=== PATIENT | male | born 1930 | race Caucasian/White ===

== ENCOUNTER → 2016-08-02 | Outpatient (CLI) | payer MEDICARE, BC ==
[~2016-08-02] MED LIST: ASPI81TA45 PO; BACT800T5 PO; CARV12.52 OR; CODCAP PO; DIGO0.12 PO; ESCI20TA PO; PLAV75TA OR; SIMV20TA OR; ZOFR4TAB3 SL; [UNRECOGNIZED DRUG - CODE] PO
[2016-08-02 13:21] LABS: HEMATOCRIT 40.8 % (39.0-51.0); MEAN CELL VOLUME 93.6 FL (80.0-100.0); MEAN CORPUSCULAR HGB CONC 33.1 % (32.0-36.0); PLATELET COUNT 209 TH/MM3 (150-450); RED BLOOD COUNT 4.35 MIL/MM3 (4.50-5.90); RED CELL DISTRIBUTION WIDTH 13.8 % (11.6-17.2); REVIEW FLAG FINAL; WHITE BLOOD COUNT 5.8 TH/MM3 (4.0-11.0)
[2016-08-02 13:56] LABS: ALKALINE PHOSPHATASE 74 U/L (45-117); ALT (GPT) 32 U/L (12-78); ANION GAP 7 MEQ/L (5-15); AST (GOT) 20 U/L (15-37); BICARBONATE 26.7 MEQ/L (21.0-32.0); BLOOD UREA NITROGEN 17 MG/DL (7-18); CHLORIDE 107 MEQ/L (98-107); GLOMERULAR FILTRATION RATE 39 ML/MIN (>89); GLUCOSE,FASTING 110 MG/DL (74-99); HDL CHOLESTEROL 27.7 MG/DL (40.0-60.0); LDL CHOLESTEROL 27 MG/DL (0-99); LDL CHOLESTEROL DIRECT 58 MG/DL (0-99); POTASSIUM 4.3 MEQ/L (3.5-5.1); SODIUM (NA) 141 MEQ/L (136-145); TOTAL BILIRUBIN ADULT 0.6 MG/DL (0.2-1.0)
== END ==
LOC: PLAB 07:46
PROVIDERS: ATTEND Internal Medicine
DX: I10 Essential (primary) hypertension (principal); E78.5 Hyperlipidemia, unspecified
CPT/HCPCS: 36415; 80053; 80061; 83721; 85027

== ENCOUNTER → 2016-08-30 | Outpatient (CLI) | payer MEDICARE, BC | LOC: PLAB 06:59 | DX: M32.10 Systemic lupus erythematosus, organ or system involvement unspecified (principal) | CPT/HCPCS: 36415; 86038; 86235 ==

== ENCOUNTER → 2016-09-06 | Outpatient (CLI) | payer MEDICARE, BC ==
[2016-09-06 12:09] LABS: AUTOMATED NEUTROPHIL # 4.3 TH/MM3 (1.8-7.7); BASOPHIL # 0.1 TH/MM3 (0-0.2); BASOPHIL % 1.6 % (0.0-2.0); EOSINOPHIL # 0.2 TH/MM3 (0-0.4); EOSINOPHIL % 2.6 % (0.0-4.0); HEMATOCRIT 39.6 % (39.0-51.0); HEMO FLAGS DIFF FINAL; LYMPH % 28.7 % (9.0-44.0); MEAN CELL VOLUME 91.9 FL (80.0-100.0); MEAN CORPUSCULAR HEMOGLOBIN 30.7 PG (27.0-34.0); MEAN CORPUSCULAR HGB CONC 33.4 % (32.0-36.0); MONO % 5.8 % (0.0-8.0); NEUT % 61.3 % (16.0-70.0); PLATELET COUNT 225 TH/MM3 (150-450); RED BLOOD COUNT 4.31 MIL/MM3 (4.50-5.90); RED CELL DISTRIBUTION WIDTH 13.5 % (11.6-17.2)
[2016-09-06 12:40] LABS: ANION GAP 9 MEQ/L (5-15); AST (GOT) 23 U/L (15-37); BICARBONATE 25.3 MEQ/L (21.0-32.0); BLOOD UREA NITROGEN 16 MG/DL (7-18); CHLORIDE 108 MEQ/L (98-107); GLOMERULAR FILTRATION RATE 41 ML/MIN (>89); POTASSIUM 4.2 MEQ/L (3.5-5.1); SODIUM (NA) 142 MEQ/L (136-145)
[2016-09-06 12:45] LABS: ALKALINE PHOSPHATASE 79 U/L (45-117); ALT (GPT) 34 U/L (12-78); CREATINE KINASE 125 U/L (39-308); TOTAL BILIRUBIN ADULT 0.5 MG/DL (0.2-1.0); TOTAL PROTEIN SPE 7.4 GM/DL (6.0-7.6)
[2016-09-06 12:57] LABS: CKMB 0.9 NG/ML (0.5-3.6)
[2016-09-10 12:25] LABS: ALBUMIN SPE 4.42 GM/DL (3.50-5.00); ALPHA 1 GLOBULIN 0.19 GM/DL (0.11-0.29); ALPHA 2 GLOBULIN 0.91 GM/DL (0.22-1.00); BETA GLOBULINS (SPE) 0.83 GM/DL (0.53-1.03)
== END ==
LOC: PLAB 10:16
DX: K75.9 Inflammatory liver disease, unspecified (principal); C95.90 Leukemia, unspecified not having achieved remission
CPT/HCPCS: 36415; 80053; 80074; 82248; 82550; 82552; 84165; 84484; 85025; 86235

== ENCOUNTER 2016-11-20 12:46 | Emergency (ER) | payer MEDICARE, BC ==
[~2016-11-20] VITALS: Ht 177.8 cm; Wt 100.0 kg
[2016-11-20 13:05] VITALS: BP 137/79; PULSE 60; RESP 18; TEMP 98.4; O2SAT 94
[2016-11-20 13:17] VITALS: BP 138/70; RESP 18
[2016-11-20 13:18] VITALS: BP 128/63; RESP 18
[2016-11-20 13:19] VITALS: BP 133/63; RESP 18
[2016-11-20] MEDS ORDERED: SODIUM CHLORIDE 0.9% FLUSH 10 ML FLUSH IVF PRN (13:30)
--- NOTE | 2016-11-20 13:35 | PD ---
HPI Chief Complaint: Syncope/Near-Syncope Time Seen by Provider: 13:07 Travel History International Travel<30 days: No Contact w/Intl Traveler<30days: No Traveled to known affect area: No History of Present Illness HPI This patient was sitting at an outpatient lab where his was getting blood drawn. He was feeling a bit lightheaded and then he stood up and things got much worse. He felt like he is going to pass out but did not lose consciousness or fall. Someone nearby helped guide him down to the chair. No injury. He never had headache or chest pain. Paramedics were called and he was found to be hypotensive on scene. However blood pressure is 137 systolic at this time. He feels improved. Severity symptoms was moderate. Duration 15 minutes. No alleviating factors. PFSH Past Medical History Arthritis: Yes Autoimmune Disease: No Anxiety: No Depression: Yes Cancer: Yes (SURGICALLY REMOVED-colon) Cardiovascular Problems: Yes (PACE MAKER ) High Cholesterol: Yes Coronary Artery Disease: Yes Diabetes: No Endocrine: No Gastrointestinal Disorders: Yes Genitourinary: No Hypertension: Yes Immune Disorder: No Musculoskeletal: Yes Neurologic: No Reproductive: No Respiratory: Yes (COPD, WEARS O2 AT NIGHT ) Myocardial Infarction: Yes Sickle Cell Disease: No Thyroid Disease: No Past Surgical History Abdominal Surgery: Yes (COLON/ABD) AICD: Yes Cholecystectomy: Yes Coronary Artery Bypass Graft: Yes (x 1 vessel) Genitourinary Surgery: Yes (PROSTATE) Pacemaker: Yes Social History Alcohol Use: No Tobacco Use: No (quit) Substance Use: No Allergies-Medications (Allergen,Severity, Reaction): Coded Allergies: Phenergan (Verified Allergy, Severe, HYPERACTIVITY, 11/20/16) DENIES ALLERGY Reported Meds & Prescriptions Reported Meds & Active Scripts Active Zofran ODT (Ondansetron HCl) 4 Mg Tab 4 Mg SL Q6H PRN FOR NAUSEA/VOMITING Bactrim DS (Sulfamethoxazole-Trimethoprim DS) 1 Tab Tab 1 Tab PO BID Reported Cod Liver Oil Cap 2 Cap PO BID Gelatin 650 Mg Cap 2 Cap PO BID Aspirin 81 mg EC Lo-Dose (Aspirin) 81 Mg Tab 81 Mg PO DAILY Digoxin 0.125 mg (Digoxin) 0.125 Mg Tab 0.125 Mg PO DAILY Simvastatin 20 Mg Tab 20 Mg OR DAILY Plavix (Clopidogrel Bisulfate) 75 Mg Tab 75 Mg OR DAILY Escitalopram Oxalate 20 Mg Tab 20 Mg PO DAILY Carvedilol 12.5 mg (Carvedilol) 12.5 Mg Tab 12.5 Mg OR BID Review of Systems General / Constitutional: No: Fever Eyes: No: Visual changes HENT: Positive: Lightheadedness, No: Headaches Cardiovascular: No: Chest Pain or Discomfort Respiratory: No: Shortness of Breath Gastrointestinal: No: Abdominal Pain Genitourinary: No: Dysuria Musculoskeletal: Positive: Weakness, No: Pain Skin: No Rash Neurologic: Positive: Weakness, Dizziness Psychiatric: No: Depression Endocrine: No: Polydipsia Hematologic/Lymphatic: No: Easy Bruising Physical Exam Narrative GENERAL: Well-nourished, well-developed patient in no apparent distress. SKIN: Focused skin assessment reveals no rash and nodules. Skin is Warm and dry. HEAD: Atraumatic. Normocephalic. EYES: Pupils equal and round. No scleral icterus. No injection or drainage. ENT: No nasal bleeding or discharge. Mucous membranes pink and moist. NECK: Trachea midline. No JVD. CARDIOVASCULAR: Regular rate and rhythm. No murmur appreciated. RESPIRATORY: No accessory muscle use. Clear to auscultation. Breath sounds equal bilaterally. GASTROINTESTINAL: Abdomen soft, non-tender, nondistended. Hepatic and splenic margins not palpable. MUSCULOSKELETAL: No obvious deformities. No clubbing. No cyanosis. No edema. NEUROLOGICAL: Awake and alert. No obvious cranial nerve deficits. Motor grossly within normal limits. Normal speech. PSYCHIATRIC: Appropriate mood and affect; insight and judgment normal. Data Data Last Documented VS Vital Signs Date Time Temp Pulse Resp B/P Pulse Ox O2 Delivery O2 Flow Rate FiO2 11/20/16 13:19 60 18 133/63 11/20/16 13:13 94 Room Air 11/20/16 13:05 98.4 Orders Electrocardiogram (11/20/16 13:28) Basic Metabolic Panel (Bmp) (11/20/16 13:28) Complete Blood Count With Diff (11/20/16 13:28) Ecg Monitoring (11/20/16 13:28) Iv Access Insert/Monitor (11/20/16 13:28) Oximetry (11/20/16 13:28) Sodium Chloride 0.9% Flush (Ns Flush) (11/20/16 13:30) Orthostatic Vital Signs (11/20/16 13:28) Labs Laboratory Tests Test 11/20/16 13:40 White Blood Count 6.8 TH/MM3 Red Blood Count 3.77 MIL/MM3 Hemoglobin 11.8 GM/DL Hematocrit 35.6 % Mean Corpuscular Volume 94.4 FL Mean Corpuscular Hemoglobin 31.3 PG Mean Corpuscular Hemoglobin 33.2 % Concent Red Cell Distribution Width 13.1 % Platelet Count 206 TH/MM3 Mean Platelet Volume 7.9 FL Neutrophils (%) (Auto) 63.6 % Lymphocytes (%) (Auto) 25.2 % Monocytes (%) (Auto) 7.3 % Eosinophils (%) (Auto) 2.6 % Basophils (%) (Auto) 1.3 % Neutrophils # (Auto) 4.3 TH/MM3 Lymphocytes # (Auto) 1.7 TH/MM3 Monocytes # (Auto) 0.5 TH/MM3 Eosinophils # (Auto) 0.2 TH/MM3 Basophils # (Auto) 0.1 TH/MM3 CBC Comment DIFF FINAL Differential Comment Sodium Level 144 MEQ/L Potassium Level 4.4 MEQ/L Chloride Level 111 MEQ/L Carbon Dioxide Level 28.2 MEQ/L Anion Gap 5 MEQ/L Blood Urea Nitrogen 14 MG/DL Creatinine 1.46 MG/DL Estimat Glomerular Filtration 46 ML/MIN Rate Random Glucose 77 MG/DL Calcium Level 8.6 MG/DL [facility] Medical Decision Making Medical Screen Exam Complete: Yes Emergency Medical Condition: Yes Medical Record Reviewed: Yes Differential Diagnosis Vasovagal episode, cardiac arrhythmia, dehydration Narrative Course I have reviewed the patient's electronic medical record. IV placed CBC is normal Metabolic profile shows minor renal insufficiency which is chronic and stable I reviewed his EKG which shows sinus rhythm but no ST elevation Extended cardiac monitoring reveals sinus rhythm around 60, he is paced Orthostatic vitals are normal, he is neurologically intact and feels improved Patient has done well here. He feels well. He is ambulatory without symptoms I don't feel he requires pacer evaluation. Diagnosis Primary Impression: Postural dizziness with presyncope Additional Instructions: The patient was advised to follow up with their physician and return if they worsen. Med/Other Pt SpecificInfo: Other Disposition: 01 DISCHARGE HOME Condition: Stable Waqar Angel MD Nov 20, 2016 13:35
[2016-11-20 14:07] LABS: AUTOMATED NEUTROPHIL # 4.3 TH/MM3 (1.8-7.7); BASOPHIL # 0.1 TH/MM3 (0-0.2); BASOPHIL % 1.3 % (0.0-2.0); EOSINOPHIL # 0.2 TH/MM3 (0-0.4); EOSINOPHIL % 2.6 % (0.0-4.0); HEMATOCRIT 35.6 % (39.0-51.0); HEMO FLAGS DIFF FINAL; LYMPH % 25.2 % (9.0-44.0); LYMPHOCYTE # 1.7 TH/MM3 (1.0-4.8); MEAN CELL VOLUME 94.4 FL (80.0-100.0); MEAN CORPUSCULAR HEMOGLOBIN 31.3 PG (27.0-34.0); MEAN CORPUSCULAR HGB CONC 33.2 % (32.0-36.0); MONO % 7.3 % (0.0-8.0); NEUT % 63.6 % (16.0-70.0); PLATELET COUNT 206 TH/MM3 (150-450); RED BLOOD COUNT 3.77 MIL/MM3 (4.50-5.90); RED CELL DISTRIBUTION WIDTH 13.1 % (11.6-17.2); WHITE BLOOD COUNT 6.8 TH/MM3 (4.0-11.0)
[2016-11-20 14:17] LABS: BICARBONATE 28.2 MEQ/L (21.0-32.0); POTASSIUM 4.4 MEQ/L (3.5-5.1)
--- NOTE | 2016-11-21 11:19 | EKG ---
Date Performed: 11/20/2016 Time Performed: 13:13:15 PTAGE: 86 years EKG: ELECTRONIC ATRIAL PACEMAKER NONSPECIFIC T-WAVE ABNORMALITY ABNORMAL RHYTHM ECG PREVIOUS TRACING 04/11/2015 No change from the prior tracing. DOCTOR: Nathan Naik Interpretating Date/Time 11/21/2016 11:18:48
== END 2016-11-20 16:02 | disposition home or self-care (01) ==
LOC: NEPE 12:46
DX: R55 Syncope and collapse (principal); R42 Dizziness and giddiness; E78.00 Pure hypercholesterolemia, unspecified; I10 Essential (primary) hypertension; I25.10 Atherosclerotic heart disease of native coronary artery without angina pectoris; I25.2 Old myocardial infarction; Z79.82 Long term (current) use of aspirin; Z95.1 Presence of aortocoronary bypass graft; Z95.0 Presence of cardiac pacemaker; J44.9 Chronic obstructive pulmonary disease, unspecified; Z87.891 Personal history of nicotine dependence
CPT/HCPCS: 80048; 85025; 93005

== ENCOUNTER → 2016-12-12 | Outpatient (CLI) | payer MEDICARE, BC ==
[2016-12-12 12:50] LABS: MEAN CELL VOLUME 95.8 FL (80.0-100.0); MEAN CORPUSCULAR HEMOGLOBIN 31.5 PG (27.0-34.0); MEAN CORPUSCULAR HGB CONC 32.9 % (32.0-36.0); PLATELET COUNT 270 TH/MM3 (150-450); RED BLOOD COUNT 4.28 MIL/MM3 (4.50-5.90); RED CELL DISTRIBUTION WIDTH 13.6 % (11.6-17.2); REVIEW FLAG FINAL; WHITE BLOOD COUNT 7.4 TH/MM3 (4.0-11.0)
[2016-12-12 13:21] LABS: ANION GAP 9 MEQ/L (5-15); AST (GOT) 16 U/L (15-37); BICARBONATE 26.8 MEQ/L (21.0-32.0); BLOOD UREA NITROGEN 15 MG/DL (7-18); CHLORIDE 106 MEQ/L (98-107); GLOMERULAR FILTRATION RATE 39 ML/MIN (>89); GLUCOSE,FASTING 130 MG/DL (74-99); POTASSIUM 4.4 MEQ/L (3.5-5.1); SODIUM (NA) 142 MEQ/L (136-145)
[2016-12-12 13:26] LABS: ALKALINE PHOSPHATASE 79 U/L (45-117); ALT (GPT) 23 U/L (12-78); HDL CHOLESTEROL 25.6 MG/DL (40.0-60.0); LDL CHOLESTEROL 12 MG/DL (0-99); LDL CHOLESTEROL DIRECT 51 MG/DL (0-99); TOTAL BILIRUBIN ADULT 0.5 MG/DL (0.2-1.0)
== END ==
LOC: PLAB 08:05
PROVIDERS: ATTEND Internal Medicine
DX: I10 Essential (primary) hypertension (principal); E78.5 Hyperlipidemia, unspecified; Z12.11 Encounter for screening for malignant neoplasm of colon
CPT/HCPCS: 36415; 80053; 80061; 83721; 85027

== ENCOUNTER → 2017-04-15 | Outpatient (CLI) | payer MEDICARE, BC ==
[2017-04-15 13:18] LABS: HEMATOCRIT 40.8 % (39.0-51.0); HEMOGLOBIN 13.7 GM/DL (13.0-17.0); MEAN CELL VOLUME 94.4 FL (80.0-100.0); MEAN CORPUSCULAR HEMOGLOBIN 31.7 PG (27.0-34.0); MEAN CORPUSCULAR HGB CONC 33.6 % (32.0-36.0); MEAN PLATELET VOLUME 7.7 FL (7.0-11.0); PLATELET COUNT 309 TH/MM3 (150-450); RED BLOOD COUNT 4.33 MIL/MM3 (4.50-5.90); RED CELL DISTRIBUTION WIDTH 13.4 % (11.6-17.2); WHITE BLOOD COUNT 6.8 TH/MM3 (4.0-11.0)
[2017-04-15 13:30] LABS: ALBUMIN 3.6 GM/DL (3.4-5.0); AST (GOT) 27 U/L (15-37); BICARBONATE 26.2 MEQ/L (21.0-32.0); BLOOD UREA NITROGEN 22 MG/DL (7-18); CALCIUM 9.6 MG/DL (8.5-10.1); CHLORIDE 106 MEQ/L (98-107); CHOLESTEROL 132 MG/DL (120-200); CREATININE 2.07 MG/DL (0.60-1.30); GLOMERULAR FILTRATION RATE 30 ML/MIN (>89); GLUCOSE,FASTING 150 MG/DL (74-99); SODIUM (NA) 140 MEQ/L (136-145)
[2017-04-15 13:32] LABS: ALKALINE PHOSPHATASE 87 U/L (45-117); ALT (GPT) 34 U/L (12-78); HDL CHOLESTEROL 24.4 MG/DL (40.0-60.0); LDL CHOLESTEROL 50 MG/DL (0-99); LDL CHOLESTEROL DIRECT 73 MG/DL (0-99); TOTAL BILIRUBIN ADULT 0.5 MG/DL (0.2-1.0); TOTAL PROTEIN 8.1 GM/DL (6.4-8.2); TRIGLYCERIDES 289 MG/DL (42-150)
== END ==
LOC: PLAB 08:27
PROVIDERS: ATTEND Internal Medicine
DX: I10 Essential (primary) hypertension (principal); E11.65 Type 2 diabetes mellitus with hyperglycemia; E78.5 Hyperlipidemia, unspecified
CPT/HCPCS: 36415; 80053; 80061; 83721; 85027

== ENCOUNTER → 2017-04-21 | Outpatient (CLI) | payer MEDICARE, BC | LOC: PLAB 09:42 | PROVIDERS: ATTEND Internal Medicine | DX: I50.9 Heart failure, unspecified (principal); E11.65 Type 2 diabetes mellitus with hyperglycemia | CPT/HCPCS: 36415; 80162 ==

== ENCOUNTER → 2017-09-05 | Outpatient (CLI) | payer MEDICARE, BC ==
[2017-09-05 10:56] LABS: HEMATOCRIT 41.5 % (39.0-51.0); HEMOGLOBIN 13.7 GM/DL (13.0-17.0); MEAN CELL VOLUME 94.8 FL (80.0-100.0); MEAN CORPUSCULAR HEMOGLOBIN 31.2 PG (27.0-34.0); MEAN CORPUSCULAR HGB CONC 32.9 % (32.0-36.0); MEAN PLATELET VOLUME 8.3 FL (7.0-11.0); PLATELET COUNT 226 TH/MM3 (150-450); RED BLOOD COUNT 4.38 MIL/MM3 (4.50-5.90); RED CELL DISTRIBUTION WIDTH 13.8 % (11.6-17.2); WHITE BLOOD COUNT 6.7 TH/MM3 (4.0-11.0)
[2017-09-05 11:04] LABS: ALBUMIN 3.6 GM/DL (3.4-5.0); AST (GOT) 24 U/L (15-37); BICARBONATE 25.5 MEQ/L (21.0-32.0); BLOOD UREA NITROGEN 13 MG/DL (7-18); CALCIUM 9.2 MG/DL (8.5-10.1); CHLORIDE 109 MEQ/L (98-107); CHOLESTEROL 114 MG/DL (120-200); CREATININE 1.51 MG/DL (0.60-1.30); GLOMERULAR FILTRATION RATE 44 ML/MIN (>89); GLUCOSE,FASTING 118 MG/DL (74-99); SODIUM (NA) 145 MEQ/L (136-145)
[2017-09-05 11:20] LABS: ALKALINE PHOSPHATASE 84 U/L (45-117); ALT (GPT) 30 U/L (12-78); CHOLESTEROL/ HDL RATIO 4.11 RATIO; DIGOXIN 0.5 NG/ML (0.8-2.0); HDL CHOLESTEROL 27.7 MG/DL (40.0-60.0); LDL CHOLESTEROL 30 MG/DL (0-99); LDL CHOLESTEROL DIRECT 62 MG/DL (0-99); TOTAL BILIRUBIN ADULT 0.5 MG/DL (0.2-1.0); TOTAL PROTEIN 7.5 GM/DL (6.4-8.2); TRIGLYCERIDES 282 MG/DL (42-150)
== END ==
LOC: PLAB 07:02
PROVIDERS: ATTEND Internal Medicine
DX: I25.10 Atherosclerotic heart disease of native coronary artery without angina pectoris (principal); I11.0 Hypertensive heart disease with heart failure; I10 Essential (primary) hypertension; R73.09 Other abnormal glucose; E78.5 Hyperlipidemia, unspecified
CPT/HCPCS: 36415; 80053; 80061; 80162; 83721; 85027

== ENCOUNTER 2017-12-09 13:11 | Inpatient (IN) ==
[2017-12-09 14:52] LABS: Baso # (Auto) 0.1 th/mm3 (0.0-0.2); Baso % (Auto) 0.9 % (0.0-2.0); Eos # (Auto) 0.3 th/mm3 (0.0-0.4); Eos % (Auto) 3.4 % (0.0-4.0); Hematocrit 35.9 % (39.0-51.0); Hemoglobin 12.4 gm/dL (13.0-17.0); Lymph # (Auto) 1.8 th/mm3 (1.0-4.8); Lymph % (Auto) 24.7 % (9.0-44.0); Mean Corpuscular HGB Conc 34.4 % (32.0-36.0); Mean Corpuscular Hemoglobin 32.2 pg (27.0-34.0); Mean Corpuscular Volume 93.4 fL (80.0-100.0); Mean Platelet Volume 7.6 fL (7.0-11.0); Mono # (Auto) 0.5 th/mm3 (0.0-0.9); Mono % (Auto) 6.1 % (0.0-8.0); Neut # (Auto) 4.7 th/mm3 (1.8-7.7); Neut % (Auto) 64.9 % (16.0-70.0); Platelet Count 223 th/mm3 (150-450); Red Blood Count 3.84 mil/mm3 (4.50-5.90); Red Cell Distribution Width 13.1 % (11.6-17.2); White Blood Count 7.4 th/mm3 (4.0-11.0)
[2017-12-09 15:00] LABS: Chloride 108 meq/L (98-107); Sodium 142 meq/L (136-145)
[2017-12-09 15:03] LABS: INR 1.1 Ratio; Prothrombin Time 10.7 sec (9.8-11.6)
[2017-12-09 15:04] LABS: Albumin 3.5 g/dL (3.4-5.0); Anion Gap 8 meq/L (5-15); Blood Urea Nitrogen 14 mg/dL (7-18); Calcium 8.8 mg/dL (8.5-10.1); Carbon Dioxide 26.5 meq/L (21.0-32.0); Glucose,Random 124 mg/dL (74-106)
[2017-12-09 15:07] LABS: Alanine Aminotransferase 33 U/L (12-78); Aspartate Aminotransferase 24 U/L (15-37); Glomerular Filtration Rate 48 mL/min (>89)
[2017-12-09 15:09] LABS: Total Protein 7.1 g/dL (6.4-8.2)
[2017-12-09 15:10] LABS: Alkaline Phosphatase 70 U/L (45-117); Creatine Kinase 113 U/L (39-308)
[2017-12-09 15:12] LABS: Troponin I 0.03 ng/mL (0.02-0.05)
--- NOTE | 2017-12-09 15:18 | CT ---
EXAM DATE: 12/09/2017 3:05 PM EDT AGE/SEX: 87 years / Male INDICATIONS: Slurred speech last night. CLINICAL DATA: This is the patient's initial encounter. Patient reports that signs and symptoms have been present for 2 days and indicates a pain score of 0/10. MEDICAL/SURGICAL HISTORY: None. None. RADIATION DOSE: 59.47 CTDI (mGy) COMPARISON: POI, CT BRAIN W/O CONTRAST, 01/02/2017. . TECHNIQUE: CT of the head without contrast. Using automated exposure control and adjustment of the mA and/or kV according to patient size, radiation dose was kept as low as reasonably achievable to ob tain optimal diagnostic quality images. DICOM format image data is available electronically for revi ew and comparison. FINDINGS: There is diffuse prominence of the CSF spaces, ventricles and cisterns. 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 No signs of acute infarct, hemorrhage or mass. No fractures. CONCLUSION: 1. No acute findings. . Electronically signed by: Tom Narvaez MD 12/09/2017 3:16 PM EDT
--- NOTE | 2017-12-09 15:48 | ED ---
HPI General Chief complaint: Neuro Symptoms/Deficit Stated complaint: Evac/AMS Time Seen by Provider: 12/09/17 16:16 Source: patient Limitations: altered mental status History of Present Illness HPI narrative: Patient is an 87-year-old male presents emergency department for evaluation of difficulty speaking. Patient states that this is been going on all day today. He states he woke with these symptoms. No headache no chest pain no shortness of breath no abdominal pain. He does take Plavix. No blood thinners. Patient really is unable to provide much of his history. He does not when he states he has atrial fibrillation. He is having significant difficulty finding words. He shakes his head no when asked if he is ever had a stroke before. When asked if he felt okay when he went to bed last night he nods yes. Related Data Home Medications Medication Instructions Recorded Confirmed clopidogrel 75 mg PO DAILY 12/09/17 12/09/17 digoxin 0.125 mg PO DAILY 12/09/17 12/09/17 escitalopram oxalate 20 mg PO DAILY 12/09/17 12/09/17 nitroglycerin [Nitrostat] 0.4 mg SUBLINGUAL Q5-15M PRN 12/09/17 12/09/17 simvastatin 20 mg PO QPM 12/09/17 12/09/17 Allergies Allergy/AdvReac Type Severity Reaction Status Date / Time promethazine Allergy Severe HYPERACTIVI Verified 12/09/17 13:28 TY Review of Systems ROS Unobtainable ROS Unobtainable: unobtainable due to mental status PMFSH Social History Social History Substance History: No History of Abuse Smoking Status: Former smoker How Often Do You Have a Drink Containing Alcohol: Never Recent Travel in [facility] within the Last 8 Weeks: No Recent Out of Country Travel within the Last 8 Weeks: No Immunization History Tetanus Immunization: Unable to Assess Hx Influenza Vaccine This Season: Unable to Assess Exam Narrative Exam Narrative: GENERAL: Well-developed well-nourished no obvious distress, unkempt SKIN: Focused skin assessment warm/dry. HEAD: Atraumatic. Normocephalic. EYES: Pupils equal and round. No scleral icterus. No injection or drainage. ENT: No nasal bleeding or discharge. Mucous membranes pink and moist. NECK: Trachea midline. No JVD. CARDIOVASCULAR: Regular rate and rhythm. No murmur appreciated. RESPIRATORY: No accessory muscle use. Clear to auscultation. Breath sounds equal bilaterally. GASTROINTESTINAL: Abdomen soft, non-tender, nondistended. Hepatic and splenic margins not palpable. MUSCULOSKELETAL: No obvious deformities. No clubbing. No cyanosis. No edema. NEUROLOGICAL: Awake and alert, follows commands in all 4 extremities, cranial nerves II through XII grossly intact and nonfocal. He is unable to identify pain or watch and in fact his knee low gives him is when he tries to. He has significant difficulty finding words longer than one syllable. No cerebellar abnormality peer PSYCHIATRIC: Appropriate mood and affect; insight and judgment normal. Course Consultations Consultation #1: Dr. Guardado Time: 16:42 Initial Documented Vital Signs Temperature 98.1 F 12/09/17 14:06 Pulse Rate 65 12/09/17 14:06 Respiratory Rate 16 12/09/17 14:06 Blood Pressure 165/75 H 12/09/17 14:06 Pulse Oximetry 100 12/09/17 14:06 Last Documented Vital Signs Temperature 97.0 F L 12/10/17 04:00 Pulse Rate 64 12/10/17 08:00 Respiratory Rate 18 12/10/17 04:00 Blood Pressure 129/58 L 12/10/17 04:00 Pulse Oximetry 94 L 12/10/17 04:00 Sign Out Sign Out Data: Patient Sign Out occurred on 12/09/17 at 16:16. Patient's care was discussed, and care was transferred from Ant Maldonado MD to Alejandra Casillas. Sign Out Comment: Follow up workup and likely admit for subacute stroke workup. Last updated by Ant Maldonado MD at 12/09/17 16:04 Post-Handoff Eval: This patient was signed out to me pending further workup of acute dysarthria. Onset was on awakening this morning. Laboratory and radiographic studies have been reviewed. The patient will be admitted for observation. Medical Decision Making MDM Narrative Medical decision making narrative: Patient room to the emergency department, sign symptoms consistent with expressive aphasia could consider and need to consider cerebrovascular accident as cause. No other focal abnormality. There is no definitive timeline for the patient's symptoms and therefore no indication for stroke alert TPA or interventional radiology at current. Patient labs and CT were ordered and then discussed with Dr. Casillas at 1500 shift change to follow-up and disposition appropriately. Medical Screen Exam Complete: Yes Emergency Medical Condition: Yes Differential Diagnosis Differential Diagnosis: TIA, subacute stroke, intracranial hemorrhage, electrolyte abnormality, UTI peer Lab Data Result diagrams: 12/09/17 14:46 12/09/17 14:46 Lab Results 12/09/17 12/09/17 12/09/17 Range/Units 14:46 14:46 14:46 CBC w Diff Auto diff final WBC 7.4 (4.0-11.0) th/mm3 RBC 3.84 L (4.50-5.90) mil/mm3 Hgb 12.4 L (13.0-17.0) gm/dL Hct 35.9 L (39.0-51.0) % MCV 93.4 (80.0-100.0) fL MCH 32.2 (27.0-34.0) pg MCHC 34.4 (32.0-36.0) % RDW 13.1 (11.6-17.2) % Plt Count 223 (150-450) th/mm3 MPV 7.6 (7.0-11.0) fL Neut % (Auto) 64.9 (16.0-70.0) % Lymph % (Auto) 24.7 (9.0-44.0) % Ferry % (Auto) 6.1 (0.0-8.0) % Eos % (Auto) 3.4 (0.0-4.0) % Baso % (Auto) 0.9 (0.0-2.0) % Neut # (Auto) 4.7 (1.8-7.7) th/mm3 Lymph # (Auto) 1.8 (1.0-4.8) th/mm3 Ferry # (Auto) 0.5 (0.0-0.9) th/mm3 Eos # (Auto) 0.3 (0.0-0.4) th/mm3 Baso # (Auto) 0.1 (0.0-0.2) th/mm3 WBC Differential . Differential Comment . PT 10.7 (9.8-11.6) sec INR 1.1 Ratio APTT 25.0 (24.3-30.1) sec Sodium 142 (136-145) meq/L Potassium 4.0 (3.5-5.1) meq/L Chloride 108 H (98-107) meq/L Carbon Dioxide 26.5 (21.0-32.0) meq/L Anion Gap 8 (5-15) meq/L BUN 14 (7-18) mg/dL Creatinine 1.40 H (0.60-1.30) mg/dL Estimated GFR 48 L (>89) mL/min Random Glucose 124 H (74-106) mg/dL Calcium 8.8 (8.5-10.1) mg/dL Total Bilirubin 0.4 (0.2-1.0) mg/dL AST 24 (15-37) U/L ALT 33 (12-78) U/L Alkaline Phosphatase 70 (45-117) U/L Total Creatine Kinase 113 (39-308) U/L Troponin I 0.03 (0.02-0.05) ng/mL Total Protein 7.1 (6.4-8.2) g/dL Albumin 3.5 (3.4-5.0) g/dL Ur Collection Type Urine Color (Yellw/Straw) Urine Clarity (Clear) Urine pH (5.0-8.5) Ur Specific [place] (1.002-1.035) Urine Protein (Neg-Trace) mg/dL Urine Glucose (UA) (Negative) mg/dL Urine Ketones (Negative) mg/dL Urine Occult Blood (Negative) Urine Nitrate (Negative) Urine Bilirubin (Negative) Urine Urobilinogen (Less than 2) mg/dL Ur Leukocyte Esterase (Negative) Urine RBC (0-3) /hpf Ur Squamous Epith Cells (0-5) /hpf Micro UA Comment Ur Microscopic Review Urine Culture Comments 12/09/17 Range/Units 15:45 CBC w Diff WBC (4.0-11.0) th/mm3 RBC (4.50-5.90) mil/mm3 Hgb (13.0-17.0) gm/dL Hct (39.0-51.0) % MCV (80.0-100.0) fL MCH (27.0-34.0) pg MCHC (32.0-36.0) % RDW (11.6-17.2) % Plt Count (150-450) th/mm3 MPV (7.0-11.0) fL Neut % (Auto) (16.0-70.0) % Lymph % (Auto) (9.0-44.0) % Ferry % (Auto) (0.0-8.0) % Eos % (Auto) (0.0-4.0) % Baso % (Auto) (0.0-2.0) % Neut # (Auto) (1.8-7.7) th/mm3 Lymph # (Auto) (1.0-4.8) th/mm3 Ferry # (Auto) (0.0-0.9) th/mm3 Eos # (Auto) (0.0-0.4) th/mm3 Baso # (Auto) (0.0-0.2) th/mm3 WBC Differential Differential Comment PT (9.8-11.6) sec INR Ratio APTT (24.3-30.1) sec Sodium (136-145) meq/L Potassium (3.5-5.1) meq/L Chloride (98-107) meq/L Carbon Dioxide (21.0-32.0) meq/L Anion Gap (5-15) meq/L BUN (7-18) mg/dL Creatinine (0.60-1.30) mg/dL Estimated GFR (>89) mL/min Random Glucose (74-106) mg/dL Calcium (8.5-10.1) mg/dL Total Bilirubin (0.2-1.0) mg/dL AST (15-37) U/L ALT (12-78) U/L Alkaline Phosphatase (45-117) U/L Total Creatine Kinase (39-308) U/L Troponin I (0.02-0.05) ng/mL Total Protein (6.4-8.2) g/dL Albumin (3.4-5.0) g/dL Ur Collection Type Clean catch Urine Color Yellow (Yellw/Straw) Urine Clarity Clear (Clear) Urine pH 5.5 (5.0-8.5) Ur Specific [place] 1.020 (1.002-1.035) Urine Protein Negative (Neg-Trace) mg/dL Urine Glucose (UA) Negative (Negative) mg/dL Urine Ketones Negative (Negative) mg/dL Urine Occult Blood Negative (Negative) Urine Nitrate Negative (Negative) Urine Bilirubin Negative (Negative) Urine Urobilinogen 0.2 (Less than 2) mg/dL Ur Leukocyte Esterase Negative (Negative) Urine RBC 0-3 (0-3) /hpf Ur Squamous Epith Cells 0-5 (0-5) /hpf Micro UA Comment Culture not ind Ur Microscopic Review Microscopic reviewed Urine Culture Comments Culture not ind Imaging Data Radiologist's impression: Head CT 12/09/17 14:20 CONCLUSION: 1. No acute findings. . Discharge Plan Discharge Disposition Patient Disposition: 30 Still Patient Discharge Details Diagnosis: Dysarthria Physicians Team ED Provider: Alejandra Casillas Primary Care Provider: Primary Care Sierra Rucker Attending Provider: Stevo Guardado Status ED Status: Left Department Discharge Information Discharge Date/Time: 12/09/17 18:19
[2017-12-09 15:53] LABS: Bilirubin,Urine Negative (Negative); Clarity,Urine Clear (Clear); Color,Urine Yellow (Yellw/Straw); Glucose,Urine (UA) Negative (Negative); Leukocyte Esterase,Urine Negative (Negative); Nitrite,Urine Negative (Negative); PH,Urine 5.5 (5.0-8.5); Urobilinogen,Urine 0.2 mg/dL (Less than 2)
[2017-12-09 16:01] LABS: RBC,Urine 0-3 /hpf (0-3); Squamous Epithelial Cell,Urine 0-5 /hpf (0-5)
[2017-12-09] MEDS ORDERED: Acetaminophen 325 MG Tablet PO PRN (16:39)
[2017-12-09] MEDS ORDERED: Bisacodyl 10 MG Supp RECTAL PRN (16:39)
--- NOTE | 2017-12-10 11:57 | US ---
EXAM DATE: 12/10/2017 11:50 AM EDT AGE/SEX: 87 years / Male INDICATIONS: Cerebrovascular accident. CLINICAL DATA: This is the patient's initial encounter. Patient reports that signs and symptoms have been present for 1 day and indicates a pain score of 0/10. MEDICAL/SURGICAL HISTORY: Stroke. None. COMPARISON: No prior exams available for comparison. VELOCITY PARAMETERS: ICA/CCA Ratio: Right 0.7 , Left 1.0 ICA: Right 76 cm/sec, Left 70 cm/sec CCA: Right 113 cm/sec, Left 72 cm/sec ECA: Right 128 cm/sec, Left 94 cm/sec Vertebral: Right 41 cm/sec antegrade, Left 41 cm/sec antegrade FINDINGS: Right Carotid: Mild arteriosclerotic plaque is visualized.The waveforms are within normal limits. Left Carotid: Mild arteriosclerotic plaque is visualized. The waveforms are within normal limits. Other: None. CONCLUSION: No evidence of flow-limiting carotid stenosis. Electronically signed by: Hubert Moon MD 12/10/2017 11:55 AM EDT
[2017-12-10 12:43] LABS: Chloride 106 meq/L (98-107); Potassium 4.2 meq/L (3.5-5.1); Sodium 141 meq/L (136-145)
[2017-12-10 12:45] LABS: Calcium 8.7 mg/dL (8.5-10.1)
[2017-12-10 12:46] LABS: Anion Gap 7 meq/L (5-15); Blood Urea Nitrogen 14 mg/dL (7-18); Carbon Dioxide 27.6 meq/L (21.0-32.0); Glucose,Random 110 mg/dL (74-106)
[2017-12-10 12:49] LABS: Glomerular Filtration Rate 48 mL/min (>89)
[2017-12-10 13:03] LABS: Erythrocyte Sedimentation Rate 1 mm/hr (0-20)
--- NOTE | 2017-12-10 13:12 | P.HP ---
History of Present Illness Primary Care Physician: No Primary Care Physician Chief Complaint: Difficulty speaking, lower extremity weakness History of Present Illness: 87-year-old male with known history of hypertension, hyperlipidemia, coronary disease, history of colon cancer who presented the hospital because of lower extremity weakness, difficulty speaking. Patient states that his normal state of health until yesterday morning when he got out of bed and suddenly fell to the floor and since then he was unable to speak and get the words out that he was trying to say. Patient was brought to emergency department for evaluation patient has CT scan done which did not indicate any acute abnormality or acute stroke. Patient continued to still have difficulty in speaking. There is no slurred speech is just as if things he wants to say but he could not say them. He is able speak full sentences, there is no slurring of speech. Patient denies any headache, visual disturbances, unilateral weakness. Information was taken from patient and at bedside. However his does not know the name of his conditions that he has. He went you asked the patient he states that he does know but he is not able to say what they are. Information was taken from medical records in reference to his medical history - Diagnosis (1) CVA (cerebral vascular accident) (2) Dysarthria Review of Systems All other systems reviewed negative except as stated in HPI Neurologic: Reports abnormal speech PMFSH - History History Provided By: Patient - Medical History Medical History: Medical History (Last Updated 12/10/17 @ 13:06 by NAYE Ball) Coronary artery disease History of colon cancer History of placement of internal cardiac defibrillator Hyperlipidemia Hypertension - Surgical History Surgical History: Surgical History (Last Updated 12/10/17 @ 13:06 by NAYE Ball) History of coronary artery bypass surgery History of partial colectomy - Family History Family History: Family History (Last Updated 12/10/17 @ 13:06 by NAYE Ball) Other Family history unobtainable due to patient's condition - Tobacco History Smoking Status: Former smoker - Alcohol History How Often Do You Have a Drink Containing Alcohol: Never - Substance Use History Substance History: No History of Abuse - Travel History Recent Travel in the [place] Within the Last 8 Weeks: No Recent Travel Out of the Country Within the Last 8 Weeks: No - Immunization History Tetanus Immunization: Unable to Assess Hx Influenza Vaccine This Season: Unable to Assess Medications and Allergies Active Medications: Active Medications Acetaminophen (Tylenol) 650 mg PO Q4H PRN PRN Reason: Headache, fever, pain 1-5 Al Hydroxide/Mg Hydroxide (Milk Of Magnesia Liq) 30 ml PO Q12H PRN PRN Reason: Mild Constipation Bisacodyl (Dulcolax Supp) 10 mg RECTAL DAILY PRN PRN Reason: SEVERE CONSITIPATION Lactulose (Lactulose Liq) 30 ml PO DAILY PRN PRN Reason: SEVERE CONSITIPATION Ondansetron HCl (Zofran Inj) 4 mg IV.PUSH Q6H PRN PRN Reason: NAUSEA OR VOMITING Sennosides (Senokot) 17.2 mg PO Q12H PRN PRN Reason: Moderate Constipation Sodium Chloride (Ns Flush) 2 ml IV.FLUSH PRN PRN PRN Reason: FLUSH AFTER USING IV ACCESS Allergies Allergy/AdvReac Type Severity Reaction Status Date / Time promethazine Allergy Severe HYPERACTIVI Verified 12/09/17 13:28 Home Medications Medication Instructions Recorded Confirmed Type clopidogrel 75 mg PO DAILY 12/09/17 12/09/17 History digoxin 0.125 mg PO DAILY 12/09/17 12/09/17 History escitalopram oxalate 20 mg PO DAILY 12/09/17 12/09/17 History nitroglycerin [Nitrostat] 0.4 mg SUBLINGUAL Q5-15M PRN 12/09/17 12/09/17 History simvastatin 20 mg PO QPM 12/09/17 12/09/17 History Exam Vital signs: Vital Signs 12/09/17 14:06 12/09/17 14:11 12/09/17 14:20 Temperature 98.1 F Pulse Rate 65 60 Respiratory Rate 16 16 Blood Pressure 165/75 H 153/72 H Pulse Oximetry 100 95 100 12/09/17 18:25 12/09/17 20:00 12/10/17 00:00 Temperature 98.3 F 98.4 F Pulse Rate 60 60 Respiratory Rate 18 18 Blood Pressure 157/73 H 158/71 H Pulse Oximetry 100 93 L 92 L 12/10/17 04:00 12/10/17 08:00 12/10/17 12:15 Temperature 97.0 F L 98 F Pulse Rate 64 60 60 Respiratory Rate 18 20 Blood Pressure 129/58 L 140/64 Pulse Oximetry 94 L 93 L Intake & Output 08/28/18 08/29/18 08/29/18 18:59 06:59 18:59 Intake Total 650 / 650 Output Total 250 / 250 Balance 400 / 400 Weight 113.398 kg 113.3 kg Intake: Oral 400 / 400 Other 250 / 250 Output: Urine 250 / 250 Narrative: GENERAL: Well-developed, well-nourished, in no acute distress. alert and orientated person and place. HEENT: Head is normocephalic without any lesions or masses noted. Facial features are symmetric. Eyes: Pupils equal round reactive to light. Extraocular muscles are intact. Conjunctivae were clear. Oropharyngeal: Pharynx without any erythema edema. Tongue is midline without deviation. Buccal mucosa is moist without any masses or lesions NECK: Supple without any masses. Trachea midline no deviation. No JVD, no bruits are appreciated CARDIAC: Regular rhythm, regular rate. S1/S2 are heard. No murmurs gallops or rubs. LUNGS: Clear to auscultation bilaterally. No wheeze, rhonchi or rales. No use of accessory muscles on inspiration or expiration. ABDOMEN: Soft, nontender. Nondistended. Bowel sounds heard in all 4 quadrants. No organomegaly or masses. Negative rebound, negative guarding EXTREMITIES: No edema, pulses are equal bilaterally. No cyanosis or clubbing NEUROLOGY: Mood and affect appear appropriate. Patient does have expressive dysphasia. Muscle strength 5/5 in upper and lower extremities bilaterally. Deep tendon reflexes are 2+ in upper and lower extremities bilaterally. Results - Labs CBC & Chem 7: 12/09/17 14:46 12/10/17 12:25 Labs: Laboratory Results - last 24 hr 12/09/17 12/09/17 12/09/17 14:46 14:46 14:46 CBC w Diff Auto diff final WBC 7.4 RBC 3.84 L Hgb 12.4 L Hct 35.9 L MCV 93.4 MCH 32.2 MCHC 34.4 RDW 13.1 Plt Count 223 MPV 7.6 Neut % (Auto) 64.9 Lymph % (Auto) 24.7 [place] % (Auto) 6.1 Eos % (Auto) 3.4 Baso % (Auto) 0.9 Neut # (Auto) 4.7 Lymph # (Auto) 1.8 [place] # (Auto) 0.5 Eos # (Auto) 0.3 Baso # (Auto) 0.1 WBC Differential . Differential Comment . PT 10.7 INR 1.1 APTT 25.0 Sodium 142 Potassium 4.0 Chloride 108 H Carbon Dioxide 26.5 Anion Gap 8 BUN 14 Creatinine 1.40 H Estimated GFR 48 L Random Glucose 124 H Calcium 8.8 Total Bilirubin 0.4 AST 24 ALT 33 Alkaline Phosphatase 70 Total Creatine Kinase 113 Troponin I 0.03 Total Protein 7.1 Albumin 3.5 TSH Ur Collection Type Urine Color Urine Clarity Urine pH Ur Specific [place] Urine Protein Urine Glucose (UA) Urine Ketones Urine Occult Blood Urine Nitrate Urine Bilirubin Urine Urobilinogen Ur Leukocyte Esterase Urine RBC Ur Squamous Epith Cells Micro UA Comment Ur Microscopic Review Urine Culture Comments 12/09/17 12/10/17 15:45 12:25 CBC w Diff WBC RBC Hgb Hct MCV MCH MCHC RDW Plt Count MPV Neut % (Auto) Lymph % (Auto) [place] % (Auto) Eos % (Auto) Baso % (Auto) Neut # (Auto) Lymph # (Auto) [place] # (Auto) Eos # (Auto) Baso # (Auto) WBC Differential Differential Comment PT INR APTT Sodium 141 Potassium 4.2 Chloride 106 Carbon Dioxide 27.6 Anion Gap 7 BUN 14 Creatinine 1.40 H Estimated GFR 48 L Random Glucose 110 H Calcium 8.7 Total Bilirubin AST ALT Alkaline Phosphatase Total Creatine Kinase Troponin I Total Protein Albumin TSH 1.760 Ur Collection Type Clean catch Urine Color Yellow Urine Clarity Clear Urine pH 5.5 Ur Specific [place] 1.020 Urine Protein Negative Urine Glucose (UA) Negative Urine Ketones Negative Urine Occult Blood Negative Urine Nitrate Negative Urine Bilirubin Negative Urine Urobilinogen 0.2 Ur Leukocyte Esterase Negative Urine RBC 0-3 Ur Squamous Epith Cells 0-5 Micro UA Comment Culture not ind Ur Microscopic Review Microscopic reviewed Urine Culture Comments Culture not ind - Imaging Impressions Head CT 12/09/17 14:20 CONCLUSION: 1. No acute findings. . Carotid Doppler Study 12/10/17 00:00 CONCLUSION: No evidence of flow-limiting carotid stenosis. Caprini VTE Risk Assessment Caprini VTE Risk Assessment: Moderate/High Risk (score >= 2) Caprini Risk Assessment Model: Point Value = 1 Point Value = 2 Point Value = 3 Point Value = 5 Age 41-60 Minor surgery BMI > 25 kg/m2 Swollen legs Varicose veins or History of unexplained or recurrent spontaneous Oral contraceptives or hormone replacement Sepsis (< 1 month) Serious lung disease, including pneumonia (< 1 month) Abnormal pulmonary function Acute myocardial infarction Congestive heart failure (< 1 month) History of inflammatory bowel disease Medical patient at bed rest Age 61-74 Arthroscopic surgery Major open surgery (> 45 min) Laparoscopic surgery (> 45 min) Malignancy Confined to bed (> 72 hours) Immobilizing plaster cast Central venous access Age >= 75 History of VTE Family history of VTE Factor V Leiden Prothrombin [id number] Lupus anticoagulant Anticardiolipin antibodies Elevated serum homocysteine Heparin-induced thrombocytopenia Other congenital or acquired thrombophilia Stroke (< 1 month) Elective arthroplasty Hip, pelvis, or leg fracture Acute spinal cord injury (< 1 month) Prophylaxis Regimen: Total Risk Factor Score Risk Level Prophylaxis Regimen 0-1 Low Early ambulation 2 Moderate Order ONE of the following: *Sequential Compression Device (SCD) *Heparin 5000 units SQ BID 3-4 Higher Order ONE of the following medications: *Heparin 5000 units SQ TID *Enoxaparin/Lovenox 40 mg SQ daily (WT < 150 kg, CrCl > 30 mL/min) *Enoxaparin/Lovenox 30 mg SQ daily (WT < 150 kg, CrCl > 10-29 mL/min) *Enoxaparin/Lovenox 30 mg SQ BID (WT < 150 kg, CrCl > 30 mL/min) AND/OR *Sequential Compression Device (SCD) 5 or more Highest Order ONE of the following medications: *Heparin 5000 units SQ TID (Preferred with Epidurals) *Enoxaparin/Lovenox 40 mg SQ daily (WT < 150 kg, CrCl > 30 mL/min) *Enoxaparin/Lovenox 30 mg SQ daily (WT < 150 kg, CrCl > 10-29 mL/min) *Enoxaparin/Lovenox 30 mg SQ BID (WT < 150 kg, CrCl > 30 mL/min) AND *Sequential Compression Device (SCD) Assessment and Plan - Assessment (1) CVA (cerebral vascular accident) Code(s): I63.9 - Cerebral infarction, unspecified Status: Acute (2) Dysarthria Code(s): R47.1 - Dysarthria and anarthria Status: Acute - Plan Cerebral vascular accident with presenting symptoms of lower extremity weakness , expressive dysphasia, dysarthria -CT scan was performed which did not indicate any acute abnormality -Unable to perform MRI due to patient having internal defibrillator that is not compatible with MRI -Obtain echocardiogram, carotid ultrasound -Obtain further studies to include B12, folate, sed rate, TSH, lipid panel -Consult neurologist for further recommendations -Continue Plavix and add full dose aspirin -Continue to monitor telemetry -PT/ST/OT evaluations Hypertension, hyperlipidemia, coronary disease -Continue home medications DVT prevention -Sequential compression devices
[2017-12-10 13:13] LABS: Baso % (Auto) 0.7 % (0.0-2.0); Eos # (Auto) 0.2 th/mm3 (0.0-0.4); Eos % (Auto) 2.4 % (0.0-4.0); Hematocrit 36.5 % (39.0-51.0); Hemoglobin 12.5 gm/dL (13.0-17.0); Lymph % (Auto) 28.6 % (9.0-44.0); Mean Corpuscular HGB Conc 34.1 % (32.0-36.0); Mean Corpuscular Hemoglobin 32.2 pg (27.0-34.0); Mean Corpuscular Volume 94.2 fL (80.0-100.0); Mean Platelet Volume 8.3 fL (7.0-11.0); Mono # (Auto) 0.4 th/mm3 (0.0-0.9); Mono % (Auto) 6.2 % (0.0-8.0); Neut # (Auto) 4.2 th/mm3 (1.8-7.7); Neut % (Auto) 62.1 % (16.0-70.0); Platelet Count 225 th/mm3 (150-450); Red Blood Count 3.88 mil/mm3 (4.50-5.90); White Blood Count 6.9 th/mm3 (4.0-11.0)
[2017-12-10] MEDS: Digoxin 125 MCG Tablet PO SCH (13:15)
[2017-12-10] MEDS ORDERED: Aspirin 325 MG Tablet PO SCH (14:30)
[2017-12-10 15:05] LABS: Vitamin B12 435 pg/mL (193-986)
--- NOTE | 2017-12-10 17:02 | ECHRPT ---
Indication: CONCLUSIONS The left ventricular systolic function is severely reduced with an estimated ejection fraction of 30 %. Moderately dilated left ventricle. Wall thickness is normal. Anteroseptal and apical scarring and akinesis. Mild mitral annular calcification. Trace mitral valve regurgitation. Aortic valve sclerosis is present. There is trace tricuspid valve regurgitation. The estimated pulmonary arterial pressure is 39.2 mmHg. BP: / HR: Rhythm: Sinus MEASUREMENTS (Male / Female) Normal Values Technical Quality:Fair 2D ECHO LV Diastolic Diameter PLAX 6.2 cm 4.2 - 5.9 / 3.9 - 5.3 cm LV Systolic Diameter PLAX 5.3 cm IVS Diastolic Thickness 1.0 cm 0.6 - 1.0 / 0.6 - 0.9 cm LVPW Diastolic Thickness 1.0 cm 0.6 - 1.0 / 0.6 - 0.9 cm LV Relative Wall Thickness 0.3 LVOT Diameter 1.9 cm LV Ejection Fraction MOD 4C 32.3 % LV Ejection Fraction 4C AL 31.4 % M-MODE Aortic Root Diameter MM 2.7 cm LA Systolic Diameter MM 3.9 cm LA Ao Ratio MM 1.4 AV Cusp Separation MM 1.9 cm DOPPLER AV Peak Velocity 164.0 cm/s AV Peak Gradient 10.8 mmHg LVOT Peak Velocity 115.0 cm/s LVOT Peak Gradient 5.3 mmHg AV Area Cont Eq pk 2.0 cm MV Area PHT 4.2 cm Mitral E Point Velocity 81.4 cm/s Mitral A Point Velocity 78.0 cm/s Mitral E to A Ratio 1.0 LV E' Lateral Velocity 5.7 cm/s Mitral E to LV E' Lateral Ratio 14.4 LV E' Septal Velocity 4.3 cm/s Mitral E to LV E' Septal Ratio 19.0 TR Peak Velocity 270.0 cm/s TR Peak Gradient 29.2 mmHg Right Atrial Pressure 10.0 mmHg Pulmonary Artery Systolic Pressu 39.2 mmHg Right Ventricular Systolic Press 39.2 mmHg PV Peak Velocity 97.7 cm/s PV Peak Gradient 3.8 mmHg FINDINGS LEFT VENTRICLE The left ventricular systolic function is severely reduced with an estimated ejection fraction of 30 %. Moderately dilated left ventricle. Wall thickness is normal. Anteroseptal and apical scarring and akinesis. RIGHT VENTRICLE Normal right ventricular size and systolic function. LEFT ATRIUM The left atrial size is normal. RIGHT ATRIUM The right atrial size is normal. ATRIAL SEPTUM Normal atrial septal thickness without atrial level shunting by limited color doppler interrogation. AORTA The aortic root and proximal ascending aorta are normal in size on limited imaging. MITRAL VALVE Mild mitral annular calcification. Trace mitral valve regurgitation. AORTIC VALVE Trileaflet aortic valve. Aortic valve sclerosis is present. TRICUSPID VALVE Structurally normal tricuspid valve. There is trace tricuspid valve regurgitation. The estimated pulmonary arterial pressure is 39.2 mmHg. PULMONARY VALVE No pulmonary valve regurgitation or stenosis. VESSELS The inferior vena cava is normal in size. PERICARDIUM No pericardial effusion. Nathan Naik MD (Electronically Signed) Final Date:10 December 2017 17:01
--- NOTE | 2017-12-10 18:20 | P.CONNEU ---
History of Present Illness Service: Neurology Primary Care Provider: No Primary Care Physician Family Provider: No Primary Care Physician Chief Complaint: Difficulty speaking, lower extremity weakness History of Present Illness: 87-year-old gentleman brought in for acute difficulty with speech production. This has been improving. Takes Plavix at home. He is a cane, walker to ambulate with. History of pacemaker. Denies any headache spinal pain Review of Systems All other systems reviewed negative except as stated in HPI [facility] - History History Provided By: Patient - Medical History Medical History: Medical History (Last Reviewed 12/10/17 @ 13:59 by Ilda Schilling) Coronary artery disease History of colon cancer History of placement of internal cardiac defibrillator Hyperlipidemia Hypertension - Surgical History Surgical History: Surgical History (Last Reviewed 12/10/17 @ 13:59 by Ilda Schilling) History of coronary artery bypass surgery History of partial colectomy - Family History Family History: Family History (Last Updated 12/10/17 @ 13:06 by NAYE Ball) Other Family history unobtainable due to patient's condition - Tobacco History Smoking Status: Former smoker - Alcohol History How Often Do You Have a Drink Containing Alcohol: Never - Substance Use History Substance History: No History of Abuse - Travel History Recent Travel in the [place] Within the Last 8 Weeks: No Recent Travel Out of the Country Within the Last 8 Weeks: No - Immunization History Tetanus Immunization: Unable to Assess Hx Influenza Vaccine This Season: Unable to Assess Medications and Allergies Active Medications: Active Medications Acetaminophen (Tylenol) 650 mg PO Q4H PRN PRN Reason: Headache, fever, pain 1-5 Al Hydroxide/Mg Hydroxide (Milk Of Magnesia Liq) 30 ml PO Q12H PRN PRN Reason: Mild Constipation Bisacodyl (Dulcolax Supp) 10 mg RECTAL DAILY PRN PRN Reason: SEVERE CONSITIPATION Digoxin (Lanoxin) 125 mcg PO DAILY [facility] Last Admin: 12/10/17 13:15 Dose: 125 mcg Dipyridamole/Aspirin (Aggrenox) 1 cap PO Q12HR MARCELO Escitalopram Oxalate (Lexapro) 20 mg PO DAILY [facility] Last Admin: 12/10/17 13:15 Dose: 20 mg Lactulose (Lactulose Liq) 30 ml PO DAILY PRN PRN Reason: SEVERE CONSITIPATION Ondansetron HCl (Zofran Inj) 4 mg IV.PUSH Q6H PRN PRN Reason: NAUSEA OR VOMITING Pravastatin Sodium (Pravachol) 40 mg PO QPM MARCELO Sennosides (Senokot) 17.2 mg PO Q12H PRN PRN Reason: Moderate Constipation Sodium Chloride (Ns Flush) 2 ml IV.FLUSH PRN PRN PRN Reason: FLUSH AFTER USING IV ACCESS Allergies Allergy/AdvReac Type Severity Reaction Status Date / Time promethazine Allergy Severe HYPERACTIVI Verified 12/09/17 13:28 Home Medications Medication Instructions Recorded Confirmed Type clopidogrel 75 mg PO DAILY 12/09/17 12/09/17 History digoxin 0.125 mg PO DAILY 12/09/17 12/09/17 History escitalopram oxalate 20 mg PO DAILY 12/09/17 12/09/17 History nitroglycerin [Nitrostat] 0.4 mg SUBLINGUAL Q5-15M PRN 12/09/17 12/09/17 History simvastatin 20 mg PO QPM 12/09/17 12/09/17 History Exam Vital signs: Vital Signs 12/09/17 18:25 12/09/17 20:00 12/10/17 00:00 Temperature 98.3 F 98.4 F Pulse Rate 60 60 Respiratory Rate 18 18 Blood Pressure 157/73 H 158/71 H Pulse Oximetry 100 93 L 92 L 12/10/17 04:00 12/10/17 08:00 12/10/17 12:00 Temperature 97.0 F L 98 F 98.5 F Pulse Rate 64 60 60 Respiratory Rate 18 20 20 Blood Pressure 129/58 L 140/64 159/72 H Pulse Oximetry 94 L 94 L 91 L 12/10/17 12:15 12/10/17 16:00 Temperature Pulse Rate 60 60 Respiratory Rate Blood Pressure Pulse Oximetry Intake & Output 12/09/17 12/10/17 12/10/17 18:59 06:59 18:59 Intake Total 650 / 650 Output Total 250 / 250 Balance 400 / 400 Weight 113.398 kg 113.3 kg Intake: Oral 400 / 400 Other 250 / 250 Output: Urine 250 / 250 Narrative: GENERAL: Well-developed, well-nourished, in no acute distress. alert and orientated person and place. HEENT: Head is normocephalic without any lesions or masses noted. Facial features are symmetric. Extraocular muscles are intact. Conjunctivae were clear. NECK: Supple without any masses. Trachea midline no deviation. No JVD, no bruits are appreciated CARDIAC: Premature contractions, systolic murmur LUNGS: Clear to auscultation bilaterally. No wheeze, rhonchi or rales. No use of accessory muscles on inspiration or expiration. ABDOMEN: Soft, nontender. Nondistended. EXTREMITIES: No edema, pulses are equal bilaterally. No cyanosis or clubbing NEUROLOGY: Awake alert, oriented 1 to, mild expressive aphasia and dysnomia follows simple motor requests, OU 2 mm sluggishly reactive with opacities bilateral, no facial asymmetry, able raise all 4 extremity gravity for greater than 5 seconds no drift muscle strength 5/5 in upper and lower extremities bilaterally. Deep tendon reflexes are 2+ in upper and lower extremities bilaterally. Gait not assessed secondary to fall risk - Constitutional no acute distress - Routine HEENT Exam Head: Present: normocephalic Eye: Present: EOMI Results - Labs CBC & Chem 7: 12/10/17 12:25 12/10/17 12:25 Labs: Laboratory Results - last 24 hr 12/10/17 12/10/17 12/10/17 12:25 12:25 12:25 CBC w Diff Auto diff final WBC 6.9 RBC 3.88 L Hgb 12.5 L Hct 36.5 L MCV 94.2 MCH 32.2 MCHC 34.1 RDW 13.0 Plt Count 225 MPV 8.3 Neut % (Auto) 62.1 Lymph % (Auto) 28.6 [place] % (Auto) 6.2 Eos % (Auto) 2.4 Baso % (Auto) 0.7 Neut # (Auto) 4.2 Lymph # (Auto) 2.0 [place] # (Auto) 0.4 Eos # (Auto) 0.2 Baso # (Auto) 0.0 WBC Differential . Differential Comment . ESR 1 Sodium 141 Potassium 4.2 Chloride 106 Carbon Dioxide 27.6 Anion Gap 7 BUN 14 Creatinine 1.40 H Estimated GFR 48 L Random Glucose 110 H Hemoglobin A1c 6.0 Calcium 8.7 Vitamin B12 435 Folate Greater than 20.0 H TSH 1.760 - Imaging Impressions Carotid Doppler Study 12/10/17 00:00 CONCLUSION: No evidence of flow-limiting carotid stenosis. Review/Management - Diagnosis (1) Acute ischemic left MCA stroke Code(s): I63.512 - Cerebral infarction due to unspecified occlusion or stenosis of left middle cerebral artery Status: Acute Current Visit: Yes (2) Pacemaker Code(s): Z95.0 - Presence of cardiac pacemaker Status: Acute Current Visit: Yes (3) Gait disorder Code(s): R26.9 - Unspecified abnormalities of gait and mobility Status: Acute Current Visit: Yes (4) Dysarthria Code(s): R47.1 - Dysarthria and anarthria Status: Acute Current Visit: Yes - Review/Management Plan: Left MCA stroke Suspect cardioembolic Ejection fraction 30% dilated ventricle Carotid ultrasound no significant vaso-occlusive disease Recommendations Change to Aggrenox Cardiology evaluation for possibility Coumadin for cardioembolic protection with depressed ejection fraction also assessment to exclude atrial fibrillation Therapy Discharge planning home versus rehab per therapist recommendation Discussed with patient and spouse at bedside No driving
--- NOTE | 2017-12-10 21:41 | ECG ---
Date Performed: 12/09/2017 Time Performed: 14:27:13 PTAGE: 87 years EKG: ELECTRONIC ATRIAL PACEMAKER MODERATE INTRAVENTRICULAR CONDUCTION DELAY NONSPECIFIC ST & T[address] ABNORMALITY ABNORMAL RHYTHM ECG PREVIOUS TRACING : 11/20/2016 13.13 Since the previous tracing, no significant change noted DOCTOR: Anish Paez Interpretating Date/Time 12/10/2017 21:40:13
--- NOTE | 2017-12-11 08:50 | CT ---
EXAM DATE: 12/11/2017 8:43 AM EDT AGE/SEX: 87 years / Male INDICATIONS: Difficulty speaking. Cerebrovascular accident. CLINICAL DATA: This is the patient's subsequent encounter. Patient reports that signs and symptoms h ave been present for 2 days and indicates a pain score of 0/10. MEDICAL/SURGICAL HISTORY: Cardiovascular disease. Carcinoma, colon. Hypertension. CABG. Colon re section. RADIATION DOSE: 61.73 CTDI (mGy) COMPARISON: [facility], CT HEAD W/O CONTRAST, 12/09/2017. . TECHNIQUE: CT of the head without contrast. Using automated exposure control and adjustment of the mA and/or kV according to patient size, radiation dose was kept as low as reasonably achievable to ob tain optimal diagnostic quality images. DICOM format image data is available electronically for revi ew and comparison. FINDINGS: There is acute infarct involving the posterior left temporal lobe measuring approximately 3.5 cm in d iameter without evidence of hemorrhage. This is new when compared with the prior exam. There is old infarct in the posterior right temporal lobe. The ventricles are enlarged out of proportion to the urias lcal atrophy. In addition the third ventricle is somewhat prominent. Clinical correlation would be he lpful in regards to the possibility of normal pressure hydrocephalus. Posterior fossa structures are unremarkable. CONCLUSION: 1. Acute ischemic infarct in the posterior left temporal region as above . Electronically signed by: Nima Wynn MD 12/11/2017 8:49 AM EDT
[2017-12-11] MEDS: Digoxin 125 MCG Tablet PO SCH (10:06)
[2017-12-11 10:46] LABS: Chol/HDL Ratio 4.85 Ratio; HDL Cholesterol 24.7 mg/dL (40.0-60.0)
--- NOTE | 2017-12-11 14:35 | P.PN ---
Subjective Interval history: 87-year-old male who is seen and examined today in follow-up for acute CVA. Patient laying in bed, resting comfortably. He states that he still having problems with trying to verbally express what he is thinking. Patient vital signs are stable, patient remains afebrile. Physical Exam Vital signs: Vital Signs 12/10/17 16:00 12/10/17 20:00 12/11/17 00:00 Temperature 98.7 F 99.4 F 98.6 F Pulse Rate 61 60 60 Respiratory Rate 20 18 18 Blood Pressure 156/70 H 167/74 H 136/63 Pulse Oximetry 92 L 94 L 95 12/11/17 04:00 12/11/17 08:00 12/11/17 12:00 Temperature 98.0 F 98.2 F 97.7 F Pulse Rate 60 59 L 60 Respiratory Rate 18 21 19 Blood Pressure 139/75 152/67 H 146/68 H Pulse Oximetry 96 90 L 95 Intake & Output 12/10/17 12/11/17 12/11/17 18:59 06:59 18:59 Intake Total 120 / 120 200 / 200 480 / 480 Output Total 450 / 450 300 / 300 200 / 200 Balance -330 / -330 -100 / -100 280 / 280 Intake: Oral 120 / 120 200 / 200 480 / 480 Output: Urine 450 / 450 300 / 300 200 / 200 Narrative: GENERAL: Well-developed, well-nourished, in no acute distress. alert and orientated person and place. HEENT: Head is normocephalic without any lesions or masses noted. Facial features are symmetric. Eyes: Extraocular muscles are intact. Conjunctivae were clear. NECK: Supple without any masses. Trachea midline no deviation. No JVD, CARDIAC: Regular rhythm, regular rate. S1/S2 are heard. No murmurs gallops or rubs. LUNGS: Clear to auscultation bilaterally. No wheeze, rhonchi or rales. No use of accessory muscles on inspiration or expiration. ABDOMEN: Soft, nontender. Nondistended. Bowel sounds heard in all 4 quadrants. No organomegaly or masses. Negative rebound, negative guarding EXTREMITIES: No edema, pulses are equal bilaterally. No cyanosis or clubbing NEUROLOGY: Mood and affect appear appropriate. Patient does have expressive dysphasia. Moving all extremities, speech is clear Results - Labs CBC & Chem 7: 12/10/17 12:25 12/10/17 12:25 Laboratory Results - last 24 hr 12/10/17 12/10/17 12/11/17 12:25 12:25 04:50 Hemoglobin A1c 6.0 Triglycerides 358 H Cholesterol 120 LDL Cholesterol, Calc 24 HDL Cholesterol 24.7 L Cholesterol/HDL Ratio 4.85 Vitamin B12 435 Folate Greater than 20.0 H - Imaging Impressions Head CT 12/11/17 06:00 CONCLUSION: 1. Acute ischemic infarct in the posterior left temporal region as above . - Procedures ECHOCARDIOGRAM CONCLUSIONS The left ventricular systolic function is severely reduced with an estimated ejection fraction of 30%. Moderately dilated left ventricle. Wall thickness is normal. Anteroseptal and apical scarring and akinesis. Mild mitral annular calcification. Trace mitral valve regurgitation. Aortic valve sclerosis is present. There is trace tricuspid valve regurgitation. The estimated pulmonary arterial pressure is 39.2 mmHg. Assessment and Plan - Assessment (1) CVA (cerebral vascular accident) Code(s): I63.9 - Cerebral infarction, unspecified Status: Acute (2) Dysarthria Code(s): R47.1 - Dysarthria and anarthria Status: Acute - Plan Cerebral vascular accident with presenting symptoms of lower extremity weakness , expressive dysphasia, dysarthria -CT scan was performed which did not indicate any acute abnormality -Repeat CT scan does show acute rather large ischemic infarct in the posterior left temporal region measuring 3.5 cm. -Echocardiogram, please see results above -Carotid ultrasound did not indicate any abnormality -Further studies to include B12, folate, sed rate, TSH, lipid panel, do not indicate any abnormality -Consulted neurologist for further recommendations -Neurologist recommending Aggrenox at this time -Continue to monitor telemetry -PT/ST/OT evaluations: PT recommending physical therapy rehab -Pacemaker interrogation was performed and results on chart -Nurse Practitioner Physician Assistant recommending cardiac consultation for anticoagulation recommendations due to likely cardioembolic event. -Discussed with diversity specialist, Dr. Alas. He spoke with neurologist Dr. Snyder, after review of patient records and testing done thus far. Echocardiogram does not indicate any thrombus or vegetation. No significant abnormality with the valves. Pacemaker interrogation did not indicate any atrial arrhythmia. Telemetry did not indicate any atrial fibrillation or arrhythmia. [employer] Officer agrees with neurologist recommendations for anticoagulation to include Aggrenox. No indications for anticoagulation to include Coumadin, Eliquis or Xarelto at this time. Hypertension, hyperlipidemia, coronary disease -Continue home medications DVT prevention -Sequential compression devices Discharge Planning: Discharge home once cleared by neurologist
--- NOTE | 2017-12-12 06:36 | P.DCO ---
- Physical Therapy Order: Evaluate and treat, Improve ambulation, Strength and gait training - Occupational Therapy Order: Evaluate and treat, Improve ADL - Speech Therapy Order: To improve: Speech and communication skills - Home Health Nursing Order: Medical education, Signs/symptoms of disease process, Nursing assessment with vital signs - Analytical Chemistry Teacher Order: To evaluate: Living conditions/environment, Support services Order: To provide: Long range planning, Community services - Certification I have seen patient Bigg Call on 12/12/17. My clinical findings support the need for the requested home health care services because: Limited ability to care for self, High risk of falls I certify that my clinical findings support that this patient is homebound because: Unsteady gait/balance, Unsafe to leave home unassisted
[2017-12-12] MEDS: Digoxin 125 MCG Tablet PO SCH (08:57)
--- NOTE | 2017-12-12 09:57 | P.DS ---
Date of admission: 12/10/17 15:31 Primary care physician: No Primary Care Physician Attending physician on discharge: Stevo Guardado Anticipated date of discharge: 12/12/17 Brief History from admission: 87-year-old male with known history of hypertension, hyperlipidemia, coronary disease, history of colon cancer who presented the hospital because of lower extremity weakness, difficulty speaking. Patient states that his normal state of health until yesterday morning when he got out of bed and suddenly fell to the floor and since then he was unable to speak and get the words out that he was trying to say. Patient was brought to emergency department for evaluation patient has CT scan done which did not indicate any acute abnormality or acute stroke. Patient continued to still have difficulty in speaking. There is no slurred speech is just as if things he wants to say but he could not say them. He is able speak full sentences, there is no slurring of speech. Patient denies any headache, visual disturbances, unilateral weakness. Information was taken from patient and at bedside. However his does not know the name of his conditions that he has. He went you asked the patient he states that he does know but he is not able to say what they are. Information was taken from medical records in reference to his medical history DS: Diagnosis - Discharge Diagnosis (1) Dysarthria Status: Acute (2) Acute ischemic left MCA stroke Status: Acute (3) Gait disorder Status: Acute (4) CVA (cerebral vascular accident) Status: Acute DS: Medications - Discharge Medications Prescriptions: aspirin-dipyridamole [Aggrenox] 1 cap PO Q12HR #60 cap DS: Summary Hospital Course: 87-year-old male who originally presented the hospital he is acute onset of expressive dysphasia, lower extremity weakness. Initially patient has CT scan done which was unremarkable. Patient was admitted the hospital to rule out CVA. Patient underwent full workup. Patient unable to undergo MRI or MRA due to pacemaker. Patient had a repeat CT scan done which did indicate acute infarct in the posterior left temporal region. Further evaluation with carotid ultrasound was unremarkable. Echocardiogram did indicate a mild reduction in ejection fraction as compared to one from Dr. Torres's office from 41% to 30%. Discussed with patient's button maker on multiple occasions. Was able to interrogate patient's pacemaker which report did not indicate any significant atrial arrhythmia. Telemetry did not indicate any atrial fibrillation or arrhythmia. Echocardiogram did not indicate any significant valvular issues or vegetation. Due to the patient's probable cardioembolic CVA is recommended by neurologist cardiology address anticoagulation. Dr. Alas, did contact Dr. Snyder the neurologist and discuss anticoagulation. As indicated since there is no signs of any arrhythmia and echocardiogram was essentially unremarkable for any valvular or embolic etiology, cardiology agrees with Aggrenox as recommended by neurologist. Neurologist recommending the patient continue outpatient follow-up with her primary button maker for further recommendations. Presently patient is doing well. He did undergo ST/OT/PT evaluations in which both physical therapy is recommended that the patient have at least home with home health care or rehab placement. Speech therapy recommended that the patient have outpatient speech therapy due to the patient still with persistent expressive dysphasia. Currently the patient is clinically stable. We will plan discharge accordingly. - Time Spent with Patient Total time spent providing and/or coordinating discharge services: Greater than 30 minutes Exam Vital signs: Vital Signs 12/11/17 12:00 12/11/17 16:00 12/11/17 20:00 Temperature 97.7 F 97.8 F 97.6 F Pulse Rate 60 60 63 Respiratory Rate 19 20 20 Blood Pressure 146/68 H 124/60 120/71 Pulse Oximetry 95 95 96 12/12/17 00:00 12/12/17 04:00 12/12/17 08:00 Temperature 98.2 F 98.4 F 97.4 F L Pulse Rate 65 60 60 Respiratory Rate 16 16 18 Blood Pressure 132/62 134/62 129/60 Pulse Oximetry 94 L 94 L 95 Intake & Output 12/11/17 12/12/17 12/12/17 18:59 06:59 18:59 Intake Total 720 / 720 Output Total 600 / 600 Balance 120 / 120 Weight 115.3 kg Intake: Oral 720 / 720 Output: Urine 600 / 600 Stool 0 / 0 Other: # Voids 1 Date of Last Bowel Movement 12/11/17 Narrative: GENERAL: Well-developed, well-nourished, in no acute distress. alert and orientated person and place. HEENT: Head is normocephalic without any lesions or masses noted. Facial features are symmetric. Eyes: Extraocular muscles are intact. Conjunctivae were clear. NECK: Supple without any masses. Trachea midline no deviation. No JVD, CARDIAC: Regular rhythm, regular rate. S1/S2 are heard. No murmurs gallops or rubs. LUNGS: Clear to auscultation bilaterally. No wheeze, rhonchi or rales. No use of accessory muscles on inspiration or expiration. ABDOMEN: Soft, nontender. Nondistended. Bowel sounds heard in all 4 quadrants. No organomegaly or masses. Negative rebound, negative guarding EXTREMITIES: No edema, pulses are equal bilaterally. No cyanosis or clubbing NEUROLOGY: Mood and affect appear appropriate. Patient does have expressive dysphasia. Moving all extremities, speech is clear Results Procedures completed during hospitalization: ECHOCARDIOGRAM CONCLUSIONS The left ventricular systolic function is severely reduced with an estimated ejection fraction of 30%. Moderately dilated left ventricle. Wall thickness is normal. Anteroseptal and apical scarring and akinesis. Mild mitral annular calcification. Trace mitral valve regurgitation. Aortic valve sclerosis is present. There is trace tricuspid valve regurgitation. The estimated pulmonary arterial pressure is 39.2 mmHg. Labs on day of discharge: Labs from last 24 hours 12/11/17 04:50 Triglycerides 358 H Cholesterol 120 LDL Cholesterol, Calc 24 HDL Cholesterol 24.7 L Cholesterol/HDL Ratio 4.85 - Impressions ITS Impressions Carotid Doppler Study 12/10/17 00:00 CONCLUSION: No evidence of flow-limiting carotid stenosis. Head CT 12/11/17 06:00 CONCLUSION: 1. Acute ischemic infarct in the posterior left temporal region as above . Discharge Plan - Discharge Disposition Patient Disposition: /Home Health Service - Discharge Condition Condition: Stable - Discharge Order Discharge Orders: Discharge Order (Routine); Ordered 12/12/17 Ordered By: Waqar Quick - Discharge Details Anticipated Discharge Date: 12/12/17 - Physicians Team Primary Care Provider: Primary Care [place],No Attending Provider: Stevo Guardado Other Providers: Wilian Snyder MD
== END 2017-12-12 12:25 | disposition home health service (06) ==
LOC: PHEDA 13:11 → PHED 13:11 → PH3 18:15
PROVIDERS: ADMIT Hospitalist; ATTEND Hospitalist